=== PATIENT | female | born 1965 | race Caucasian/White ===

== ENCOUNTER 2023-10-11 13:58 | Outpatient (REF) | payer BC, SELFPAY ==
--- NOTE | 2023-10-11 07:30 | SKI_PTH ---
PATIENT: Nydia Carter LOC: [facility] U#:[id number] AGE/SX: 58/F ROOM: RE10/11/[address]: Joaquim Mitchell MD : [id number] BED: DIS: 10/11/2023 SPEC #: [id number] RECD: 10/11/23 18:20 STATUS: LIZBETH REQ #: [id number] TOMMY: 10/11/23 07:[address]: Joaquim Mitchell DEPT: Surgical Specimen RECD BY: Brianna Morfin ENTERED: 10/11/23 18:21 SP TYPE: ARIAS PAYAN DR: Mell Mckee Tissues: 1 - SKIN BIOPSY(SHAVE/PUNCH) Procedures: GROSS AND MICRO LEVEL 4 Comments: [id number]
== END 2023-10-11 13:59 | disposition home or self-care (01) ==
LOC: NCHCN 13:58
PROVIDERS: PCP Family Medicine; Visit Provider Otolaryngology
DX: J34.89 Other specified disorders of nose and nasal sinuses (principal)
CPT/HCPCS: 88305